=== PATIENT | male | born 1940 | race Caucasian/White ===

== ENCOUNTER 2016-07-09 10:12 | Emergency (ER) | payer MEDICARE, BC ==
[2016-07-09 11:22] LABS: BASOPHILS 0.2 % (0.0-2.0); HEMOGLOBIN 13.1 g/dL (13.5-17.5); IMMATURE GRANULOCYTES 0.2 % (0-5); LYMPHOCYTES 17.9 % (15-50); MCH 28.4 pg (26.0-34.0); MCHC 32.8 g/dL (31.0-37.0); MCV 86.6 fL (80.0-100.0); MEAN PLATELET VOLUME 9.5 fL (7.4-10.4); MONOCYTES 9.8 % (2-11); NEUTROPHILS 69.9 % (40-80); PLATELET COUNT 199 10x3/uL (130-400); RBC 4.62 10x6/uL (4.20-6.10); RDW 15.3 % (11.5-14.5)
[2016-07-09 11:32] LABS: APTT 28.9 SECONDS (22.8-39.4); INR 1.1 (0.85-1.17); PROTIME 14.1 SECONDS (11.6-15.0)
[2016-07-09 11:43] LABS: ALBUMIN 3.7 g/dL (3.4-5.0); ANION GAP 10.6 mmol/L (8-16); BILIRUBIN - TOTAL 0.72 mg/dL (0.2-1.3); CARBON DIOXIDE 27.9 mmol/L (21.0-32.0); CREATININE - SERUM 1.1 mg/dL (0.6-1.3); POTASSIUM - SERUM 4.5 mmol/L (3.5-5.1); PROTEIN - SERUM 6.6 g/dL (6.4-8.2)
== END 2016-07-09 13:10 | disposition home or self-care (01) ==
LOC: D.ER 10:12
PROVIDERS: Family Medicine
DX: S06.5X0A Traumatic subdural hemorrhage without loss of consciousness, initial encounter (principal); X58.XXXA Exposure to other specified factors, initial encounter; Y93.89 Activity, other specified; Y92.019 Unspecified place in single-family (private) house as the place of occurrence of the external cause; I10 Essential (primary) hypertension; I44.0 Atrioventricular block, first degree

== ENCOUNTER 2018-03-08 10:31 | Outpatient (CLI) | payer MEDICARE, BC ==
[~2018-03-08] VITALS: Ht 182.9 cm; Wt 110.5 kg
--- NOTE | ~2018-03-08 | TEE ---
PATIENT:JOSÉ MIGUEL NIEVES MEDICAL RECORD: [id number] LOCATION:[facility] AGE OF PATIENT: 78 ADMISSION DATE: 03/08/18 SEX: M REFERRING PHYSICIAN: INTERPRETING PHYSICIAN: DEIRDRE FOLEY MD TRANSESOPHAGEAL ECHOCARDIOGRAM Date: 03/08/18 JASS CHARGE Y INDICATIONS: R/O THROMBUS IN LA APPENDAGE PRIOR TO CARDIOVERSION PREMEDICATIONS: PATIENT'S RESPONSE PROCEDURE DOPPLER MEASUREMENTS: LVIT LA PA RA LVOT RVOT Asc. Ao AV Gradient Peak AV Mean AV Area MV Gradient Peak MV Mean MV Area INTERPRETATION: Doppler: 2-D: COLOR FLOW DOPPLER NORMAL SALINE STUDY: MISCELLANOUS: DIAGNOSIS: PLAN: Verification Clerk:1 Dr. Foley Emergency Vehicle Driver: 1 SIRI MAZA COMMENTS: DATE OF SERVICE: 03/08/2018 PROCEDURE: Transesophageal echocardiogram. INDICATION: Atrial fibrillation. FINDINGS: 1. Left ventricular chamber size is within normal limits. Left ventricular TRANSESOPHAGEAL ECHOCARDIOGRAM REPORT [id number] JOSÉ MIGUEL NIEVES systolic function is normal. Overall ejection fraction estimated 60%. 2. Left atrium, right atrium, right ventricular chamber sizes are upper limits of normal. Left atrium shows no evidence of thrombus. 3. Valvular structures have normal structure and motion. 4. Doppler interrogation reveals mild mitral regurgitation, no other valvular insufficiency or stenosis. 5. No evidence of pericardial effusion or left ventricular thrombus. TRANSINT:[id number] Voice Confirmation ID: [id number] DOCUMENT ID: [id number] at 0924 CC: [id number] DICTATION DATE: 03/08/18 1219 FEEDER/FOLDER: 03/09/18 0109 DEP CLI 03/08/18 [place] [id number]
--- NOTE | ~2018-03-08 | HEMODYNAMI ---
PATIENT:JOSÉ MIGUEL NIEVES MEDICAL RECORD: [id number] : 36 LOCATION:[facility] ADMISSION DATE: 03/08/18 Generatedon:03/08/201812:24 Patient name: JOSÉ MIGUEL NIEVES Patient #: [id number] SSN: DO B: 1940 Date of study: 03/08/2018 Page: Of Hemodynamic Procedure Report Patient Data Patient Demographics Procedure consent was obtained First Name: JOSÉ MIGUEL Gender: Male Last Name: EZEQUIEL : 1940 Patient #: [id number] Age: 78 year(s) Race: Unknown Additional ID: [id number] Contact details [address]: [address] [place] [address] State: [place] City: [place] Zip code: [address] Past Medical History Allergies: No known allergies Admission Admission Data Admission Date: 03/08/2018 Admission Time: 10:31 Admit Source: Other Lab Results Lab Result Date: 03/08/2018 Lab Result Time: 11:07 Biochemistry Name Units Result Min Max BUN mg/dl 16 --(---*)-- 7 18 Creatinine mg/dl 1.1 --(--*-)-- 0.6 1.3 CBC Name Units Result Min Max Hematocrit % 38.7 *-(----)-- 42 54 Hemoglobin g/dl 13.1 -*(----)-- 13.5 17.5 Procedure Procedure Types Cath Procedure Diagnostic Procedure Cardioversion External JASS Procedure Description Procedure Date Procedure Date: 03/08/2018 Procedure Start Time: 12:16 Procedure End Time: 12:22 Procedure Staff Name Function Zoltan Foley MD Performing Physician Celestine Delgadillo RT Monitor Fortino Rogers RN Nurse Chris Garland RT Slots Manager Johnathan Manzanares MD Additional personnel Feli Gonzalez Pilot Plant Research Technician Procedure Data Cath Procedure Fluoroscopy Diagnostic fluoroscopy Total fluoroscopy Time: 0 time: 0 min min Diagnostic fluoroscopy Total fluoroscopy dose: 0 dose: 0 mGy mGy Contrast Material Contrast Material Type Amount (ml) Isovue 300 0 Estimated blood loss: 0 ml Procedure Complications No complications Procedure Medications Medication Administration Route Dosage Oxygen etCO2 Nasal cannula 2 l/min Hurricaine [place] P.O. 1 Sprays Refer to Anesthesia Notes for Sedation Medications Oxygen etCO2 Nasal cannula 4 l/min Hemodynamics Rest HGB: 13.1 (g/dl) Heart Rate: 64 (bpm) Snapshots Pre Cath Intra NCS Post Cath Vital Signs Time Heart Resp SPO2 etCO2 NIBP (mmHg) Rhythm Pain Sedation Rate (ipm) (%) (mmHg) Status Level (bpm) 11:56:15 68 16 98 0 157/102(109) NSR 0 (11) 10(A) , No pain 12:00:33 68 30 98 0 155/97(132) NSR 0 (11) 10(A) , No pain 12:04:57 78 16 98 0 127/100(109) NSR 0 (11) 10(A) , No pain 12:09:13 80 16 93 0 128/50(83) NSR 0 (11) 10(A) , No pain 12:13:32 64 14 99 0 96/58(77) NSR 0 (11) 8(A) , No pain 12:18:24 69 14 95 0 128/79(101) NSR 0 (11) 10(A) , No pain Medications Time Medication Route Dose Verified Delivered Reason Notes Effectiv eness by by 11:56:42 Oxygen etCO2 2 Zoltan Freitas used for Nasal l/min Alaina Rogers RN procedure cannula 11:56:51 Hurricaine P.O. 1 Zoltan Freitas Per [place] Sprays Alaina Rogers RN physician 11:56:54 Refer to Zoltan Freitas Anesthesia Alaina Rogers RN Notes for Sedation Medications 12:13:10 Oxygen etCO2 4 Zoltan Freitas used for Nasal l/min Alaina Rogers RN procedure cannula Procedure Log Time Note 11:30:29 Chris CUNNINGHAM(R) sent for patient. Start room use. 11:47:27 Informed consent obtained and on chart 11:47:30 Admit Source: Other 11:49:29 Time tracking: Regular hours (M-F 7:00 - 5:00) 11:49:33 Plan of Care:Hemodynamics will remain stable., Cardiac rhythm will remain stable., Comfort level will be maintained., Respiratory function will remain adequate., Patient/ family verbilizes understanding of procedure., Procedure tolerated without complication., Recovers from procedure without complications.. 11:50:17 H&P Date Dictated: 03/02/2018 Within 30 days and on chart., H&P Addendum completed by physician on day of procedure. (MUST COMPLETE FOR ALL OUTPATIENTS). 11:50:26 Patient arrived from Pre/Post Procedure Room to CCL 1. Patient remains on bed/stretcher for procedure. 11:50:27 Warm blankets applied, and jaiden hugger turned on for patient comfort. 11:50:27 Correct patient and procedure confirmed by team. 11:50:28 ECG and BP/O2 sat monitors applied to patient. 11:50:29 Pre-procedure instructions explained to patient. 11:50:29 Pre-op teaching completed and patient verbalized understanding. 11:50:30 Family in waiting room. 11:50:31 Patient NPO since Midnight. 11:50:39 Patient allergic to No known allergies 11:50:41 Is the patient allergic to Iodine/contrast media? No. 11:54:19 Vital chart was started 11:55:59 Baseline sample Acquired. 11:56:04 Rhythm: atrial fibrillation 11:56:05 Full Disclosure recording started 11:56:10 Is patient on blood thinner?No 11:56:27 Quick Combo opened to sterile field. 11:56:32 Johnathan Manzanares MD present and monitoring patient for TIVA. 11:56:36 Quick combo pads placed on patients chest and back. 11:56:42 Oxygen 2 l/min etCO2 Nasal cannula was administered by Fortino Rogers RN; used for procedure; 11:56:51 Hurricaine [place] 1 Sprays P.O. was administered by Fortino Rogers RN; Per physician; 11:56:54 Refer to Anesthesia Notes for Sedation Medications was administered by Fortino Rogers RN; ; 11:57:02 Patient diabetic? No. 12:00:53 Previous problem with sedation/anesthesia? No ? 12:00:55 Snore? No 12:00:56 Sleep apnea? No 12:00:57 Deviated septum? No 12:00:58 Opens mouth fully? Yes 12:01:00 Sticks out tongue? Yes 12:01:02 Airway obstruction? No ? 12:01:22 Dentures? No ? 12:01:31 Patient pain scale 0/10 ?. 12:01:37 IV patent on arrival in left wrist with 0.9% NaCl at O. 12:02:40 Lab Result : BUN 16 mg/dl 12::40 Lab Result : Hemoglobin 13.1 g/dl 12::40 Lab Result : Creatinine 1.1 mg/dl 12::40 Lab Result : Hematocrit 38.7 % 12::42 Lab results completed and on chart. 12:02:45 Alarms reviewed by Eamon Mishra 12:04:04 Feli Gonzalez Glove Sewer present for JASS. 12::43 Physician arrived 12:: --------ALL STOP TIME OUT------ :43 Final Timeout: patient, procedure, and site verified with staff and physician. All members of the team are in agreement. 12:07:00 Physical assessment completed. ASA score P 3 - A patient with severe systemic disease as per Zoltan Foley MD. 12:07:04 Sedation plan: TIVA Medication:Propofol 12:07:46 Baseline sample Acquired. 12:11:28 Baseline sample Acquired. 12:12:00 Procedure started. 12:12:56 JASS started. 12:13:10 Oxygen 4 l/min etCO2 Nasal cannula was administered by Fortino Rogers RN; used for procedure; 12:14:54 JASS completed. 12:15:03 Defibrillator synced and charged to 275 Joules. 12:15:46 Shock delivered. 12:16:27 Baseline sample Acquired. 12:16:36 Patient cardioverted to 1st degree heart block. 12:16:54 Procedure ended.(Physican Out) 12:18:24 Fluoroscopy time 00.00 minutes. 12:18:26 Fluoroscopy dose: 0 mGy 12:18:26 Flurop Dose total: 0 12:18:29 Contrast amount:Isovue 300 0ml. 12:18:49 Post-procedure physical assessment completed. ASA score P 3 - A patient with severe systemic disease as per Zoltan Foley MD. 12:18:52 Post procedure rhythm: 1st degree heart block 12:18:54 Estimated blood loss: 0 ml 12:18:59 Post procedure instruction explained to patient.Patient verbalizes understanding. 12:19:00 Patient needs reinforcement of post procedure teaching. 12:19:08 Procedure type changed to Cath procedure, Diagnostic procedure, Cardioversion External, JASS 12:19:19 Procedure and supply charges have been captured, reviewed, submitted and are correct. 12:19:21 Procedure Complication : No complications 12:22:47 Vital chart was stopped 12:22:48 See physician's report for complete and final results. 12:22:49 Report given to Pre/Post Procedure Room. 12:22:52 Patient transfered to Pre/Post Procedure Room with Stretcher. 12:22:54 Procedure ended. 12:22:54 Full Disclosure recording stopped 12:24:14 End room use (Document Last) Device Usage Item Manufacture Quantity Catalog Hospital Part Current Minimal Lot# / Name Number Charge Number Stock Stock Venancio wi# Code SegundoHogar 1 [id number] Combo Signature Audit Second [place] Stage Time Signature Unsigned Intra-Procedure 03/08/2018 Celestine Delgadillo 12:24:43 PM RT(R) Signatures Monitor : Celestine Delgadillo RT Signature : Date : Time : [place] [id number] [place] [address]
--- NOTE | ~2018-03-08 | OP ---
PATIENT NAME: JOSÉ MIGUEL NIEVES MEDICAL RECORD: [id number] :36 LOCATION:[facility] ADMISSION DATE: SURGEON: DEIRDRE ROSS MD DATE OF OPERATION: 03/08/2018 DATE OF SERVICE: 03/08/2018 PROCEDURE: DC cardioversion. INDICATION: Atrial fibrillation. PROCEDURE IN DETAIL: IV conscious sedation was per anesthesia. Continuous heart rate, O2 saturation, blood pressure monitoring all undertaken, all of which remains stable. He received 1 shock at 275 joules restoring sinus rhythm. OVERALL IMPRESSION: Successful DC cardioversion from atrial fibrillation to sinus rhythm. TRANSINT:[id number] Voice Confirmation ID: [id number] DOCUMENT ID: [id number] DEIRDRE ROSS MD at 0924 CC: [id number] DICTATION DATE: 03/08/18 122 VALET: 03/08/18 1227 DEP CLI 03/08/18 [facility] [address] [place] [address]
[2018-03-08] MEDS ORDERED: APTIOM800 MG PO (10:54)
[2018-03-08] MEDS ORDERED: REQUIP1 MG PO (10:54)
[2018-03-08] MEDS ORDERED: KEPPRA1000 MG PO (10:54)
[2018-03-08] MEDS ORDERED: UROXATRAL10 MG PO (10:55)
[2018-03-08] MEDS ORDERED: EXFORGE 5-320 M1 TAB PO (10:55)
[2018-03-08] MEDS ORDERED: POTASSIUM CHLORIDE C (10:56)
[2018-03-08] MEDS ORDERED: MOBIC7.5 MG PO (10:57)
[2018-03-08 10:58] VITALS: BP 167/86; Ht 182.9 cm; Wt 110.5 kg
[2018-03-08 11:14] LABS: BASOPHILS 0.3 % (0-2); EOSINOPHILS 3.4 % (0-7); HEMATOCRIT 38.7 % (42.0-54.0); HEMOGLOBIN 13.1 g/dL (13.5-17.5); IMMATURE GRANULOCYTES 0.2 % (0-5); LYMPHOCYTES 18.8 % (15-50); MCH 27.8 pg (26.0-34.0); MCHC 33.9 g/dL (31.0-37.0); MCV 82.2 fL (80.0-100.0); MEAN PLATELET VOLUME 9.4 fL (7.4-10.4); MONOCYTES 8.6 % (2-11); NEUTROPHILS 68.7 % (40-80); PLATELET COUNT 169 10x3/uL (130-400); RBC 4.71 10x6/uL (4.20-6.10); RDW 15.6 % (11.5-14.5); WBC 5.8 10x3/uL (4.8-10.8)
[2018-03-08 11:20] LABS: ANION GAP 15.1 mmol/L (8-16); CALCIUM 9.1 mg/dL (8.5-10.1); CARBON DIOXIDE 23.5 mmol/L (21.0-32.0); CREATININE - SERUM 1.1 mg/dL (0.6-1.3); POTASSIUM - SERUM 4.6 mmol/L (3.5-5.1)
[2018-03-08 11:23] LABS: INR 1.15 (0.85-1.17); PROTIME 14.3 SECONDS (11.6-15.0)
== END 2018-03-08 13:40 ==
LOC: D.CATH 10:31
PROVIDERS: Internal Medicine Interventional Cardiology
DX: I48.91 Unspecified atrial fibrillation (principal)